=== PATIENT | male | born 1980 | race Two or more races ===

== ENCOUNTER 2021-05-04 22:50 | Emergency (ER) | payer MEDICAID ==
[~2021-05-04] VITALS: Ht 172.7 cm; Wt 72.6 kg
--- NOTE | 2021-05-04 22:59 | NUR ---
PT AAOX4. NAUSEA AND VOMITING S/P SMOKING WEED. PLACED IN BED 11 ON MONITOR AND PULSE OX. VSS.
[2021-05-04] MEDS ORDERED: ONDANSETRON HCL/PF 4 MG/2 ML VIAL ONE ×2 (23:13→23:17)
[2021-05-04] MEDS ORDERED: ONDANSETRON HCL/PF 4 MG/2 ML VIAL IM ONE (23:30)
[2021-05-04] MEDS ORDERED: ONDANSETRON HCL/PF 4 MG/2 ML VIAL IVP ONE (23:30)
[2021-05-04] MEDS ORDERED: IV NS 0.9% 1,000 ML BAG IV ONE (23:30)
--- NOTE | 2021-05-05 02:31 | NUR ---
PT AWAKE AND RESPONSIVE NOW. CALLED HIS FAMILY TO BE PICKED UP. VSS. AMBULATORY WITH STEADY GAIT.
[2021-05-05] MEDS ORDERED: ONDA4TAB5 PO (02:32)
[2021-05-05 02:34] VITALS: BP 131/76
--- NOTE | 2021-05-05 02:34 | NUR ---
Patient discharged to home in stable condition. Written and verbal after care instructions given. Patient verbalizes understanding of instruction and RX. Pt ambulated out of ED. VSS.
== END 2021-05-05 02:42 | disposition home or self-care (01) ==
LOC: ER 22:52
DX: F19.10 Other psychoactive substance abuse, uncomplicated (principal); R11.2 Nausea with vomiting, unspecified; F10.10 Alcohol abuse, uncomplicated; Y90.9 Presence of alcohol in blood, level not specified; Z60.2 Problems related to living alone; Z79.899 Other long term (current) drug therapy
CPT/HCPCS: 96361; 96372; 96374; 99284; J2405 ×2; J7030